=== PATIENT | female | born 1965 | race Caucasian/White ===

== ENCOUNTER 2018-07-14 10:32 | Inpatient (IN) | payer MEDICAID ==
[~2018-07-14] VITALS: Ht 154.9 cm; Wt 79.0 kg
[2018-07-14] VITALS (26 sets, daily range): BP systolic 106–141; BP diastolic 58–80; PULSE 80–114; RESP 13–33; Ht 154.9 cm; Wt 79.0 kg
[~2018-07-14 10:32] MED LIST: CEFAZOLIN 1 GM/50 ML (PMX) 50 ML IVPB ONE; CEFAZOLIN 2 GM/50 ML (PMX) 50 ML IVPB ONE; ROCURONIUM 50 MG INJ ONE; SEVOFLURANE 15 MIN ONE; SOD CHLORIDE 0.9% 1,000 ML IV SCH
--- NOTE | 2018-07-14 12:33 | PREAC ---
Date/Time of Note Date/Time of Note DATE: 07/14/18 TIME: 12:32 Anesthesia Eval and Record Evaluation Time Pre-Procedure Interview DATE: 07/14/18 TIME: 12:32 Age 53 Sex female NPO: 8 hrs Preoperative diagnosis Left Breast Cancer Planned procedure Left Modified Radical Mastectomy Past Medical History Past Medical History: Includes Cardio: Dyslipidemia Surgery & Anesthesia Issues No known issue Meds Anticoagulation: No Beta Tracy within 24 hr: No Reason Beta Tracy not given: Pt. not on B-Tracy No Active Prescriptions or Reported Meds Current Medications Sodium Chloride 1,000 ml @ 75 mls/hr [id number] IV ; Start 07/14/18 at 07:00; Stop 07/14/18 at 20:19 Meds reviewed: Yes Allergies Coded Allergies: No Known Drug Allergies (Unverified Allergy, Unknown, 07/14/18) Allergies Reviewed: Yes Labs/Studies Labs Reviewed: Reviewed by anesthesiologist Result Diagram: 07/14/18 1140 07/14/18 1140 Laboratory Tests 07/14/18 11:40 test: Negative Studies: ECG (n/a), CXR (n/a) Pre-procedure Exam Last vitals Vital Signs Date Temp Pulse Resp B/P (MAP) Pulse Ox O2 O2 Flow FiO2 Time Delivery Rate 07/14/18 99.2 84 18 141/80 98 Room Air 11:24 (100) Airway: Adequate mouth opening, Adequate thyromental dist Mallampati: Mallampati II Teeth: Normal Lung: Normal Heart: Normal ASA Physical Status ASA physical status: 2 Emergency: None Planned Anesthetic General/MAC: ETT Planned Pain Management Parenteral pain med Pre-operative Attestations Prior to commencing anesthesia and surgery, the patient was re-evaluated, there was verification of: *The patient's identity *The results of appropriate recent lab work and preoperative vital signs *The above evaluation not changing prior to induction *Anesthetic plan, risk benefits, alternative and complications discussed with patient/family; questions answered; patient/family understands, accepts and wishes to proceed. RONN PAGAN MD Jul 14, 2018 12:33
[2018-07-14] MEDS ORDERED: MIDAZOLAM 1 MG/ML 2 ML INJ ONE (12:37)
[2018-07-14] MEDS ORDERED: CEFAZOLIN 1 GM INJ ONE (12:37)
[2018-07-14] MEDS ORDERED: FENTAnyl 50 MCG/ML VIAL ONE (12:37)
[2018-07-14] MEDS ORDERED: PROPOFOL 20 ML ONE (12:37)
[2018-07-14] MEDS ORDERED: ROCURONIUM 50 MG INJ ONE (12:37)
[2018-07-14] MEDS ORDERED: METOCLOPRAMIDE 10 MG INJ IV PRN (13:00)
[2018-07-14] MEDS ORDERED: OXYCODONE/ACETAMINOPHEN (5/325) TAB PO PRN ×2 (13:00)
[2018-07-14] MEDS ORDERED: DIPHENHYDRAMINE 50 MG INJ IV PRN (13:00)
[2018-07-14] MEDS ORDERED: ONDANSETRON 4 MG INJ IV PRN ×2 (13:00→14:00)
[2018-07-14] MEDS ORDERED: LABETALOL HCL 20MG INJ IV PRN (13:00)
[2018-07-14] MEDS ORDERED: MEPERIDINE 25 MG INJ IV PRN (13:00)
[2018-07-14] MEDS ORDERED: EPHEDrine SULFATE 50 MG/5 ML SYG IV PRN (13:00)
[2018-07-14] MEDS ORDERED: hydrALAzine 20 MG INJ IV PRN (13:00)
[2018-07-14] MEDS ORDERED: FENTAnyl 50 MCG/ML VIAL IV PRN ×3 (13:00)
[2018-07-14] MEDS ORDERED: HYDROmorphONE 1 MG/5 ML IV SYRINGE IV PRN ×3 (13:00)
--- NOTE | 2018-07-14 13:46 | SIPON ---
Date/Time of Note Date/Time of Note DATE: 07/14/18 TIME: 13:44 Operative Report Preoperative Diagnosis Locally advanced left breast cancer Postoperative Diagnosis Same Operation/Procedure Performed Left modified radical mastectomy with level 3 dissection Surgeon see signature line sales office assistant Magdaleno Hunt Second assist: PENELOPE ROGER MD Anesthesia: general Estimated blood loss: 10 - 50 ml's Transfusion Required None Specimen Left breast and axillary contents and an additional level 3 lymph node Grafts/Implants none Complications none VOLODYMYR MELARA MD Jul 14, 2018 13:46
[2018-07-14] MEDS ORDERED: NEOSTIGMINE 3 MG/3 ML SYRINGE ONE (13:52)
[2018-07-14] MEDS ORDERED: GLYCOPYRROLATE 0.4 MG INJ ONE (13:52)
[2018-07-14] MEDS ORDERED: ONDANSETRON 4 MG INJ ONE (13:52)
[2018-07-14] MEDS ORDERED: METOCLOPRAMIDE 10 MG INJ ONE (13:52)
[2018-07-14] MEDS ORDERED: DEXAMETHASONE 4 MG/ML 5 ML INJ ONE (13:52)
[2018-07-14] MEDS ORDERED: morphine 2 MG INJ IV PRN (14:00)
--- NOTE | 2018-07-14 14:05 | OPR ---
DATE OF OPERATION: 07/14/2018 PREOPERATIVE DIAGNOSIS: Large locally advanced left breast cancer. POSTOPERATIVE DIAGNOSIS: Large locally advanced left breast cancer. OPERATION PERFORMED: Left modified radical mastectomy. ANESTHESIA: General. ANESTHESIOLOGIST: Marcelo Cruz MD SURGEON: Shad Haley MD GUEST REQUEST RUNNER: Les Hunt MD and Patricia Wagner MD INDICATIONS FOR PROCEDURE: The patient is a very unfortunate 53-year-old female who presented with a very large left breast mass. Workup including biopsy confirmed an invasive cancer. She also had ev idence of multiple enlarged axillary lymph nodes. Biopsy of one of the axillary lymph nodes confirme d metastatic disease. She was counseled as to need for left modified radical mastectomy. She consen edmundo and was scheduled for surgery. DESCRIPTION OF PROCEDURE: The patient was brought to the operating theater, placed under general ane sthesia. The left breast and axillary region was prepped and draped in usual sterile fashion. A renny nned elliptical incision around the palpable tumor and the nipple areolar complex including significa nt portion of overlying skin of the breast was demarcated with marking pen and carried out with 15-bl clya scalpel. Subcutaneous tissue was dissected with cautery. Skin edges were then elevated with All is [place] clamps. Skin flaps were created in sequential fashion using cautery, first superiorly to th e clavicle, then medially to the sternal border, inferiorly to the inframammary fold and laterally un til the latissimus dorsi muscle was identified throughout its course. Mastectomy then took place fro m medial to lateral using cautery at the border of the pectoralis major muscle, the pectoralis minor muscle was identified. Clavipectoral fascia was incised. There were a large number of massively enl arged left axillary lymph nodes consistent with metastatic disease. With blunt dissection along the chest wall, the long thoracic nerve was identified and kept out of harm's way. More superiorly, the axillary vein was identified. There were multiple level 2 lymph nodes encasing the axillary vein. T hey were meticulously dissected off of the vein. Lymphovascular structures were controlled with ei er ligation, Hemoclips or the Voyant device. In this fashion, level 1 and level 2 lymph nodes were c ompletely removed. Continued dissection posterolaterally revealed evidence of the thoracodorsal neur ovascular bundle. It was kept out of harm's way as the nodes were dissected off of it. Final connec tive tissue attachments to the latissimus dorsi were then transected. Specimen was removed, oriented , sent for pathologic analysis. Dr. Haley palpated the area of the axillary vein as it transitioned from to the level 2 to level 3. There was a large mass consistent with metastatic nikki disease. Th e pectoralis major muscle was retracted medially. With meticulous dissection, this mass was dissecte d off of the vein and removed and sent separately for pathologic analysis. At this point, Dr. Haley deemed that there would be no benefit from continuing to pursue further dissection. Therefore, the w ound was irrigated. Minimal residual bleeding was controlled with cautery. Two #10 flat Mike-Pra tt drains were then brought through the left mid axillary line. One was cut to size and laid within the axilla. The other was cut to size and laid over the pectoralis major muscle. Both drains were s ecured in place with 2-0 nylon sutures in a standard fashion. The skin was then reapproximated with a deep dermal layer of 4-0 Vicryl sutures, followed by final skin approximation with skin bubba. T he patient tolerated procedure well. Estimated blood loss was 40 mL. There were no complications an d the patient was transported in stable condition to recovery room where circumferential compression dressing was applied. Dictated By: SHAD HALEY MD TL/NTS Conf#: [id number] DID#: [id number] CC: KATHRYN WATERS MD;*EndCC*
--- NOTE | 2018-07-14 14:11 | PAC ---
Date/Time of Note Date/Time of Note DATE: 07/14/18 TIME: 14:10 Post-Anesthesia Notes Post-Anesthesia Note Last documented vital signs Vital Signs Date Temp Pulse Resp B/P (MAP) Pulse Ox O2 O2 Flow FiO2 Time Delivery Rate 07/14/18 98.8 88 16 110/58 99 face mask 10 L 14:12 (75) 07/14/18 84 18 141/80 98 Room Air 11:24 (100) Activity: WNL Respiratory function: WNL Cardiovascular function: WNL Mental status: Baseline Pain reasonably controlled: Yes Hydration appropriate: Yes Nausea/Vomiting absent: Yes RONN PAGAN MD Jul 14, 2018 14:11
[2018-07-14] MEDS: D5W-0.45 NACL + KCL 20 MEQ 1,000 ML IV SCH ×2 (16:45→23:36)
[2018-07-14] MEDS ORDERED: HYDROCODONE/APAP (5/325) TAB PO PRN (18:30)
--- NOTE | 2018-07-14 21:37 | HP ---
DATE OF ADMISSION: 07/14/2018 CHIEF COMPLAINT AND HISTORY OF PRESENT ILLNESS: The patient is a female with no significant past med ical history who presented at Dr. Haley' office with a large left breast mass. The patient underwent biopsy which confirmed an invasive cancer. The patient also has evidence of multiple enlarged lymph nodes, biopsy of one of the lymph nodes confirmed metastatic disease. The patient was brought into hospital today and underwent left modified radical mastectomy. The patient has significant postopera tive pain and is being admitted for evaluation and management. The patient denies any history of hea dache, dizziness, syncope. No history of recent fever or chills. No history of nausea, vomiting, di arrhea. No history of dysuria or hematuria. No history of focal weakness. REVIEW OF SYSTEMS: Total of 12 systems were reviewed and all pertinent positive and negative finding s have been described in HPI. Rest of the systems were unremarkable. ALLERGIES: NONE. SOCIAL HISTORY: No smoking or alcohol. FAMILY HISTORY: Negative for breast CA. MEDICATIONS PRIOR TO ADMISSION: None. PAST SURGICAL HISTORY: The patient is status post surgery on the left breast for some benign lesion as per patient, several years ago. LABORATORY DATA: Done this morning, WBC 6.5, hemoglobin 12.4, platelet 323. Chemistry: Sodium 141, potassium 3.7, BUN 11, creatinine 0.4. Liver enzymes normal. IMPRESSION: Large locally advanced left breast cancer status post left modified radical mastectomy. PLAN: The patient admitted on medical floor. The patient was started on clear liquid diet, advance as tolerated. The patient will be given IV fluid, SCD for DVT prophylaxis and Tylenol, [place] and IV morphine for pain control. If the patient continues to do well, she will be discharged home tomorrow . Plan of care discussed with patient's family. Dictated By: KATHRYN WATERS MD AB/NTS Conf#: [id number] DID#: [id number] CC: VOLODYMYR HALEY MD;*EndCC*
[2018-07-14] MEDS: ACETAMINOPHEN 1000MG/100ML IV 100 ML IVPB PRN (23:44)
[2018-07-15 00:02] VITALS: PULSE 89
[2018-07-15 04:00] VITALS: BP 117/67; PULSE 84; RESP 17
[2018-07-15] MEDS: D5W-0.45 NACL + KCL 20 MEQ 1,000 ML IV SCH (05:46)
[2018-07-15 07:26] VITALS: BP 110/61; PULSE 82; RESP 18
[2018-07-15] MEDS: ACETAMINOPHEN 1000MG/100ML IV 100 ML IVPB PRN (07:49)
[2018-07-15] MEDS ORDERED: ACETAMINOPHEN 325 MG TAB PO PRN (15:00)
--- NOTE | 2018-07-15 15:15 | DS ---
Date/Time of Note Date/Time of Note DATE: 07/15/18 TIME: 15:13 Discharge Summary Admission/Discharge Info Admit Date/Time Jul 14, 2018 at 13:47 Discharge Date/Time Discharge Diagnosis Large locally advanced left breast cancer status post left modified radical mastectomy. Patient Condition: Stable Consults stable Hospital Course stable Home Meds Discontinued Scripts Docusate Sodium* (Colace*) 100 Mg Capsule, 100 MG PO DAILY, #20 CAP Prov:MONTSERRAT HECTOR 07/15/18 Hydrocodone/Acetaminophen ([place] 5-325 Tablet) 1 Each Tablet, 1 EACH PO Q6, #20 TAB Prov:MONTSERRAT HECTOR 07/15/18 Follow-up Plan FU with PMD x 1 week FU with surgery as recommended Call 911 or go to the nearest hospital if symptoms get worse- patient verbalized understanding discharge instructions. Plan dw Dr Savage /staff Primary Care Provider Not On Staff Doctor Pending Labs Laboratory Tests Test 07/15/18 07:40 Lab Scanned Report LAB [id number] MONTSERRAT HECTOR Jul 15, 2018 15:15
--- NOTE | 2018-07-15 15:17 | PDOCDIS ---
Discharge Instructions DIAGNOSIS Discharge Diagnosis Large locally advanced left breast cancer status post left modified radical mastectomy. CONDITION [id number] Patient Condition: [id number] Stable HOME CARE INSTRUCTIONS: [id number] Diet Instructions: [id number] Regular Gvhrm3Wj Special Diet: Fbiar5u REGULAR ACTIVITY: Nrgfu4Bk Activity Restrictions: [id number] Slowly Increase Activity Rest between Activity Avoid heavy lifting Do not Drive Do not operate Machinery Do not operate Power Tool Avoid Heavy Housework [id number] Bathing Restrictions: Gtfio3a Sponge Bath FOLLOW UP/APPOINTMENTS Follow-up Plan FU with PMD x 1 week FU with surgery as recommended Call 911 or go to the nearest hospital if symptoms get worse- patient verbalized understanding discharge instructions. Plan dw Dr Savage /staff MONTSERRAT HECTOR Jul 15, 2018 15:17
[2018-07-15] MEDS ORDERED: HYDR-4011 PO (15:18)
[2018-07-15] MEDS ORDERED: DOCU-144 PO (15:18)
--- NOTE | 2018-07-15 19:09 | PN ---
DATE: 07/15/2018 Postop day #1 status post left modified radical mastectomy. SUBJECTIVE: No complaint. OBJECTIVE: GENERAL: Awake, alert, oriented, has been out of bed, tolerating diet. VITAL SIGNS: Temperature maximum 98.3, heart rate 82, respiration 18, blood pressure 110/61, saturation 94% room air. HEART: Regular. LUNGS: Clear. ABDOMEN: Soft. There are two Mike-Miller drains in place. The Mike-Miller drains have drained 70 mL and 45 mL drainage serosanguineous since up from operation until now. EXTREMITIES: The patient has full range of motion of the upper extremities. LABORATORY DATA: No new lab results today. PLAN: The patient can be discharged to home with two Mike-Miller drains in place. Instruction was given to the patient, her family and her for the care of the Mike-Miller, and instructed to record the drainage every day until when she goes back to Dr. Melara' office to take it with herself. Pain medication is going to be given to the patient. All the questions were answered. Dictated By: AUREA LOW MD PS/NTS Conf#: [id number] DID#: [id number] CC: VOLODYMYR MELARA MD;*EndCC* MTDD
--- NOTE | 2018-07-16 21:21 | RADRPT ---
Vent Rate: 78 bpm RR Interval: 0 msec OH Interval: 122 msec QRS Duration: 86 msec QT Interval: 366 msec QTC Interval: 417 msec P-R-T [place]: 11 - 5 - 17 degrees Normal sinus rhythm Normal ECG Electronically Signed By: Juan Andres [id number]
== END 2018-07-15 16:14 | disposition home or self-care (01) | DRG 582 ==
LOC: SDS 10:32 → REC 13:47 → MS1 15:39
PROVIDERS: ADMIT Surgery Surgical Oncology; ATTEND Surgery Surgical Oncology
PROC: 07T60ZZ Resection of Left Axillary Lymphatic, Open Approach (ICD-10-PCS; 2018-07-14)
PROC: 0HTU0ZZ Resection of Left Breast, Open Approach (ICD-10-PCS; principal; 2018-07-14 14:30)
DX: C50.912 Malignant neoplasm of unspecified site of left female breast (principal); C77.3 Secondary and unspecified malignant neoplasm of axilla and upper limb lymph nodes
CPT/HCPCS: 71045; 80053; 84703; 85025; 85610; 85730; 88307; 93005; J0131; J0690; J1100; J1170; J2175; J2250; J2405; J2710; J2765; J3010; J3480

== ENCOUNTER 2019-01-13 19:37 | Emergency (ER) | payer MEDICAID ==
[~2019-01-13] VITALS: Ht 152.4 cm; Wt 63.5 kg
[2019-01-13 19:40] VITALS: Ht 152.4 cm; Wt 63.5 kg
[2019-01-13 21:17] VITALS: BP 104/80; PULSE 105; RESP 18
[2019-01-13] MEDS ORDERED: morphine 4 MG/ML VIAL IV STA (21:22)
[2019-01-13] MEDS ORDERED: HYDROCODONE/APAP (5/325) TAB PO ONE (22:30)
[2019-01-13] MEDS ORDERED: HYDR-4011 PO (22:31)
--- NOTE | 2019-01-13 22:35 | ERD ---
ER Documentation Chief Complaint Chief Complaint BODY PAIN, LEFT ARM APIN X'S 2 DAYS, HX LUNG CA HPI 53-year-old female with a history of breast cancer status post left mastectomy presenting with complaints of left arm shooting pain that she has had after her fifth round of chemotherapy. She states that it was never this severe. However since yesterday, the pain has been more severe, 10 out of 10, described as a "deep" pain. When she feels the pain in her arm she feels like the pain radiates throughout her whole body. No numbness or tingling. No weakness in the arm. No recent injuries. She does complain of bilateral neck pain as well. No urinary incontinence or retention. No change in bowel habits. She is not on any pain medications at this time other than Tylenol. She is not sure what the name of her chemotherapy is. Her oncology doctor is ROS All systems reviewed and are negative except as per history of present illness. Medications Home Meds Active Scripts Hydrocodone/Acetaminophen ([place] 5-325 Tablet) 1 Each Tablet, 1 TAB PO Q6H PRN for PAIN, #15 TAB Prov:LIN MCKEON MD 01/13/19 Allergies Allergies: Coded Allergies: No Known Drug Allergies (Unverified Allergy, Unknown, 08/24/18) PMhx/Soc History of Surgery: Yes (l. breast mastectomy, c sec x3) Anesthesia Reaction: No Hx Neurological Disorder: No Hx Respiratory Disorders: No Hx Cardiac Disorders: No Hx Psychiatric Problems: No Hx Miscellaneous Medical Probl: Yes (breast ca) Hx Alcohol Use: No Hx Substance Use: No Hx Tobacco Use: No Smoking Status: Never smoker FmHx Family History: No diabetes Physical Exam Vitals Vital Signs Date Temp Pulse Resp B/P (MAP) Pulse Ox O2 O2 Flow FiO2 Time Delivery Rate 01/13/19 105 18 104/80 100 Room Air 21:17 (88) 01/13/19 99.4 92 18 115/73 99 19:40 (87) Physical Exam Const: No acute distress Head: Atraumatic Eyes: Normal Conjunctiva ENT: Normal External Ears, Nose and Mouth. Neck: Full range of motion. No meningismus. chest wall: Mastectomy scar noted, well-healed. No crepitus to palpation of the chest wall Resp: Clear to auscultation bilaterally Cardio: Regular rate and rhythm, no murmurs. 2+ distal pulses in all 4 extremities Abd: Soft, non tender, non distended. Normal bowel sounds Skin: No petechiae or rashes Back: No midline or flank tenderness. No rashes noted. Ext: No cyanosis, or edema Neur: Awake and alert, no facial asymmetry, normal speech. Strength and sensations intact in all 4 extremities. Psych: Normal Mood and Affect Result Diagram: 01/13/19212501/13/192125 Results 24 hrs Laboratory Tests Test 01/13/19 21:26 White Blood Count 2.5 10^3/ul Red Blood Count 3.27 10^6/ul Hemoglobin 9.9 g/dl Hematocrit 29.9 % Mean Corpuscular Volume 91.4 fl Mean Corpuscular Hemoglobin 30.3 pg Mean Corpuscular Hemoglobin Concent 33.1 g/dl Red Cell Distribution Width 15.6 % Platelet Count 212 10^3/UL Mean Platelet Volume 9.2 fl Immature Granulocytes % 0.000 % Neutrophils % % Segmented Neutrophils % (Manual) 77 % Lymphocytes % % Lymphocytes % (Manual) 22 % Monocytes % % Monocytes % (Manual) 1 % Eosinophils % % Basophils % % Nucleated Red Blood Cells % 0.0 /100WBC Immature Granulocytes # 0.000 10^3/ul Neutrophils # 10^3/ul Lymphocytes (Manual) 0.5 10^3/ul Lymphocytes # 10^3/ul Monocytes # 10^3/ul Monocytes # (Manual) 0.0 10^3/ul Eosinophils # 10^3/ul Basophils # 10^3/ul Nucleated Red Blood Cells # 10^3/ul Platelet Estimate NORMAL Giant Platelets 2 % Hypochromasia 1+ Sodium Level 138 mmol/L Potassium Level 3.9 mmol/L Chloride Level 105 mmol/L Carbon Dioxide Level 23 mmol/L Anion Gap 10 Blood Urea Nitrogen 6 mg/dl Creatinine 0.39 mg/dl Est Glomerular Filtrat Rate mL/min > 60 mL/min Glucose Level 103 mg/dl Calcium Level 9.5 mg/dl Total Bilirubin 1.1 mg/dl Direct Bilirubin 0.00 mg/dl Indirect Bilirubin 1.1 mg/dl Aspartate Amino Transf (AST/SGOT) 31 IU/L Alanine Aminotransferase (ALT/SGPT) 32 IU/L Alkaline Phosphatase 66 IU/L Troponin I 0.024 ng/ml Total Protein 7.2 g/dl Albumin 4.0 g/dl Globulin 3.20 g/dl Albumin/Globulin Ratio 1.25 Current Medications Medications Dose Sig/Andrew Start Time Status Last (Trade) Ordered Route PRN Stop Time Admin Dose Reason Admin Morphine 4 mg ONCE STAT 01/13/19 DC 01/13/19 Sulfate IV 21:22 01/13/19 21:30 (morphine) 21:23 1 tab ONCE ONCE 01/13/19 DC 01/13/19 Acetaminophen PO 22:30 01/13/19 22:36 / 22:31 Hydrocodone Bitart ([place] (5/325)) Procedures/MDM EMERGENT LABS AND DIAGNOSTIC STUDIES: Lab Results above were reviewed and interpreted by me. CBC: Mild leukopenia and anemia, expected with chemotherapy CMP: No evidence of clinically significant electrolyte abnormality, acidosis, renal failure, hypoglycemia, liver disease, or biliary obstruction Troponin within normal limits, not indicative of cardiac ischemia 12-lead EKG was interpreted by Vlad Mckeon MD: Sinus tachycardia with ventricular rate of 104 beats per minute Normal axis Normal intervals Anterior T wave abnormality, nonspecific No acute ST or T wave changes suggestive of acute ischemia or STEMI. Radiology Results as interpreted by Radiology below were reviewed by Jose Manuel Mckeon MD: Chest x-ray shows no acute abnormalities Initial Nursing notes reviewed. Previous Medical Records requested via the Electronic Health Record. EMERGENCY DEPARTMENT COURSE / MEDICAL DECISION MAKING: Patient's pain is most likely neuropathic secondary to his surgery as well as chemotherapy. Initially she was tachycardic, which I think is secondary to her pain. Her pain was well controlled with morphine and oral [place]. Vitals remained stable. I have a low suspicion for ACS or pulmonary embolism. I spoke with the on-call oncologist, Dr. Adrian, who also agrees that she is most likely suffering from neuropathic pain that is chemotherapy-induced. I also discussed the lab results with him, and he states that this is expected with patients on this chemotherapy that she is receiving. As long as she does not have a fever, he recommended discharge with normal follow-up outpatient weekly as scheduled. Patient given a prescription for [place]. Differential diagnoses explained. Patient understands discharge plan. Return precautions given. Patient's blood pressure was elevated (>120/80) but appears stable without evidence of hypertensive emergency or urgency. The patient was counseled about the risks of hypertension and urged to pursue outpatient monitoring and therapy within a week with their primary care physician. 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 LIN MCKEON MD Jan 13, 2019 22:35
[2019-01-16] MEDS ORDERED: ONDA4TAB13 PO (17:19)
[2019-01-16] MEDS ORDERED: ACET-141 PO (17:19)
== END 2019-01-13 22:37 | disposition home or self-care (01) ==
LOC: E/R 19:37
DX: G62.0 Drug-induced polyneuropathy (principal); D70.1 Agranulocytosis secondary to cancer chemotherapy; T45.1X5A Adverse effect of antineoplastic and immunosuppressive drugs, initial encounter; C50.912 Malignant neoplasm of unspecified site of left female breast
CPT/HCPCS: 36415; 71045; 80053; 84484; 85025; 93005; 96374; J2270; Z7502; Z7610

== ENCOUNTER 2019-03-15 08:15 | Emergency (ER) | payer MEDICAID ==
[~2019-03-15] VITALS: Ht 160 cm; Wt 60.4 kg
[~2019-03-15 08:15] MED LIST changes: +ABEM150T PO; +ACET-141 PO; -CEFAZOLIN 1 GM/50 ML (PMX) 50 ML IVPB ONE; -CEFAZOLIN 2 GM/50 ML (PMX) 50 ML IVPB ONE; +DEXA4TAB PO; +GABA100C14 PO; +LOPE2CAP PO; +ONDA4TAB13 PO; -ROCURONIUM 50 MG INJ ONE; -SEVOFLURANE 15 MIN ONE; -SOD CHLORIDE 0.9% 1,000 ML IV SCH
[2019-03-15 08:19] VITALS: Ht 160 cm; Wt 60.4 kg
[2019-03-15] MEDS ORDERED: ACETAMINOPHEN 500 MG TAB PO STA (08:36)
[2019-03-15] MEDS ORDERED: DIPHENHYDRAMINE 50 MG INJ IV STA (08:36)
[2019-03-15] MEDS ORDERED: SOD CHLORIDE 0.9% 1,000 ML IV STA (08:36)
[2019-03-15] MEDS ORDERED: METOCLOPRAMIDE 10 MG INJ IV STA (08:36)
[2019-03-15] MEDS ORDERED: DEXAMETHASONE 10 MG/ML 1 ML INJ IV ONE (09:00)
[2019-03-15 12:18] VITALS: BP 110/76; PULSE 75; RESP 18
== END 2019-03-15 13:00 | disposition home or self-care (01) ==
LOC: E/R 08:15
DX: C70.1 Malignant neoplasm of spinal meninges (principal); G93.6 Cerebral edema; G91.9 Hydrocephalus, unspecified; D72.819 Decreased white blood cell count, unspecified; D64.9 Anemia, unspecified; D69.6 Thrombocytopenia, unspecified; R40.2142 Coma scale, eyes open, spontaneous, at arrival to emergency department; R40.2252 Coma scale, best verbal response, oriented, at arrival to emergency department; R40.2362 Coma scale, best motor response, obeys commands, at arrival to emergency department; Z85.3 Personal history of malignant neoplasm of breast
CPT/HCPCS: 36415; 70450; 71045; 80048; 85025; 85610; 85730; 96374; 96375; J1100; J1200; J2765; J7030; Z7502; Z7610